=== PATIENT | female | born 1955 | race Caucasian/White ===

== ENCOUNTER 2023-03-12 14:20 | Outpatient (CLI) | payer MEDICARE, BC, SELFPAY ==
--- NOTE | 2023-03-12 14:30 | MR_ITS ---
[address] [address] Phone:?[phone] Fax:?[phone] Referring Physician Information: Rao Chou M.D. [address] [address] Phone:?[phone] Fax:?[phone] Patient:Earle Lawson D.O.B:?1955 Sex:?Female Phone:?[phone] [facility] MRN:?[id number] Exam Date:?03/12/2023 EXAM: MRI of the RIGHT SHOULDER, without contrast CLINICAL HISTORY: Right shoulder pain. Evaluate for rotator cuff tendon tear. COMPARISONS: Plain radiographs 03/05/2023. TECHNICAL: MRI sequences of the right shoulder: Axials: PD, T2 Coronals: PD, STIR, T2 Sagittals: PD, T2 SEDATION: None CONTRAST: None FINDINGS: Bones: No fracture or suspicious bone marrow signal abnormality. Coracoacromial arch: Acromion: No os acromiale. Type II acromion. Acromiohumeral space: The bony distance is unremarkable. Coracohumeral space: The bony distance is unremarkable. Acromioclavicular joint: No acute injury, arthropathy, or inferior hypertrophy. Coracoclavicular ligament: The coracoclavicular ligament is intact. Rotator cuff muscles/tendons: Supraspinatus: 1.0 x 1.0 cm near full-thickness bursal sided tear of the supraspinatus tendon insertion contacts the cortical insertional surface and is superimposed upon mild supraspinatus tendinopathy best seen on sagittal series 8 image 5 and coronal series 4 image 10. No muscular atrophy. Infraspinatus: Bursal sided fraying and mild to moderate tendinopathy of the infraspinatus tendon. No muscular atrophy. Teres minor: The teres minor tendon and muscle are intact. Subscapularis: Slight tendinopathy. No muscular atrophy. Labrum and glenohumeral joint: No evidence of labral tear although evaluation is suboptimal because of nonarthrogram technique. Small glenohumeral joint effusion. No full-thickness chondral defect or subchondral bone marrow edema/cystic change is seen. There is edema-like signal within and thickening of the inferior glenohumeral ligament/glenohumeral joint capsule. Proximal biceps tendon, long head and short heads: The long and short heads of the proximal biceps tendon are intact. Bursae: Subacromial/subdeltoid: Moderate bursitis. Subcoracoid: No convincing subcoracoid bursal thickening/bursitis. IMPRESSION: 1. 1.0 x 1.0 cm near full-thickness bursal sided tear of the supraspinatus tendon insertion contacts the cortical insertional surface and is superimposed upon mild supraspinatus tendinopathy. 2. Findings highly associated with adhesive capsulitis. 3. Bursal sided fraying and mild to moderate tendinopathy of the infraspinatus tendon. 4. Slight subscapularis tendinopathy. 5. Moderate subacromial/subdeltoid bursitis. 6. Small glenohumeral joint effusion. 7. No atrophy of the rotator cuff musculature. 8. Intact biceps tendon. RCB Electronically signed on 03/13/2023 10:52:00 AM by Kana Zaragoza M.D.
== END 2023-03-12 14:21 | disposition home or self-care (01) ==
PROVIDERS: PCP Nurse Practitioner Family; Visit Provider Orthopaedic Surgery Sports Medicine
DX: M25.511 Pain in right shoulder (principal); M75.101 Unspecified rotator cuff tear or rupture of right shoulder, not specified as traumatic; M75.01 Adhesive capsulitis of right shoulder; M75.51 Bursitis of right shoulder; M25.411 Effusion, right shoulder
CPT/HCPCS: 73221

== ENCOUNTER 2023-04-22 09:51 | Outpatient (CLI) | payer MEDICARE, BC, SELFPAY | END 2023-04-22 09:52 | disposition home or self-care (01) | PROVIDERS: PCP Nurse Practitioner Family; Visit Provider Nurse Practitioner Family | DX: Z01.818 Encounter for other preprocedural examination (principal) | CPT/HCPCS: 80053; 85025 ==

== ENCOUNTER 2023-05-06 07:42 | Day surgery (SDC) | payer MEDICARE, BC, SELFPAY ==
[2023-05-06] VITALS (13 sets, daily range): BP systolic 100–131; BP diastolic 51–70; PULSE 68–76; RESP 14–20; TEMP 36.2–37.1; O2SAT 93–98; BMI 24.9
[2023-05-06] MEDS: fentaNYL 100 MCG/2 ML inj IVP (07:40)
[2023-05-06] MEDS: MIDAZOLAM HCL 1 MG/ML inj IVP (07:40)
[2023-05-06] MEDS: LACTATED RINGERS 1000 ML 1,000 ML 100 ML IV (07:40)
--- NOTE | 2023-05-06 08:38 | SUR.PREOP ---
TIME?OUT:?0832 PT/RN/MDA?VERIFICATION?OF?SURGICAL?SITE,?PROCEDURE,?AND?CONSENT OBTAINED?PRIOR?TO?INVASIVE?PROCEDURE.right shoulder r melany smith crna pt and consent
[2023-05-06] MEDS: SODIUM CHLORIDE 0.9 % (FLUSH) 10 ML SYRINGE IVF (08:40)
[2023-05-06] MEDS: CEFAZOLIN 2 GM in 0.9 % SODIUM CHLORIDE Mini-bag 100 ML IVPB (08:57)
--- NOTE | 2023-05-06 09:01 | W.PM.NB ---
Nerve Block Nerve Block Time Seen by Provider: 08:30 Date Seen: 05/06/23 Type of block requested by surgeon for post-operative analgesia: supraclavicular Side: right Time out performed: Yes Verification of patient name: Yes Verification of date of : Yes Site marking: site marked Name of person performing procedure: Siva Magallanes Continuous monitoring Was continuous monitoring of O2 sat, B/P, quality assurance monitor, recorded every 15 minutes?: Yes Procedure Checklist: sterile prep, needles and gloves Ultrasound guided. Images saved: Yes Medications given in 5ml increments after negative aspiration: Ropivicaine %: 0.5 mL: 25 Needle gauge: 21 Decadron (mg): 10 Precedex (mcg): 25 Patient tolerated procedure well: Yes Additional comments: Injected in 5ml increments after negative aspiration Block Charges Block Charge (with Pro Fee): Brachial Plexus Use of Ultrasound Machine for Block: Yes- US Guidance/pain block
[2023-05-06] MEDS: EPINEPHrine 1 MG in SODIUM CHLORIDE IRRIG SOLUTION 3,000 ML 9003 MG IRRIGATION ×5 (09:09→10:14)
--- NOTE | 2023-05-06 09:21 | SUR.OPER ---
CAMERA LIGHT CORD ERRORED IN SCANNING BUT STERILIZATION WAS CONFIRMED WITH STERILE PROCESSING PRIOR TO PROCEDURE START.
--- NOTE | 2023-05-06 10:21 | P.ORPRC_ITS ---
Procedure Note Date of procedure: 05/06/23 Procedure: PREOPERATIVE DIAGNOSES: 1. Right shoulder rotator cuff tear. 2. Right shoulder subacromial impingement syndrome. POSTOPERATIVE DIAGNOSES: 1. Right shoulder rotator cuff tear - supraspinatus. 2. Right shoulder subacromial impingement syndrome. 3. Right shoulder adhesive capsulitis NAME OF OPERATION: 1. Right shoulder arthroscopic rotator cuff repair - full-thickness supraspinatus and upper border Subscapularis 2. Right shoulder arthroscopic bursectomy, subacromial decompression/partial acromioplasty. 3. Right shoulder manipulation under anesthesia SURGEON: Rao Chou MD CANE SPLICER: Jaret Ramirez. Of note, a skilled assistant offset press operator was critical for this case to aide in patient positioning, suture manipulation, arm positioning, instrument positioning, and closure. ANESTHESIA: General plus preoperative supraclavicular block. EBL: 25 mL IMPLANTS: Arthrex 4.75 mm BioComposite SwiveLock suture anchor (x1); 5.5 mm BioComposite corkscrew suture anchor (x1); 5.5 mm BioComposite SwiveLock suture anchor (x3) COMPLICATIONS: None evident INDICATIONS: The patient is a pleasant, 67-year-old female who has experienced right shoulder pain that has been increasing in recent time. Physical exam and imaging were consistent with a rotator cuff tear. Given their findings, as well as the weakness and pain, and inadequate response to nonoperative management, recommendation was made for surgery. FINDINGS: Exam under anesthesia revealed stable shoulder with excellent range of motion. The diagnostic arthroscopy revealed relatively healthy articular cartilage surfaces of the glenohumeral joint. The Subscapularis tendon was torn from its upper border with moderate retraction and exposure of the lesser tuberosity. The long head of the biceps tendon was intact. The superior rotator cuff tendon was found to be torn full-thickness throughout the majority of the supraspinatus with mild retraction. The labrum was relatively healthy without significant tearing. No loose bodies were identified within the pouch or subscapularis recess. Of note, she did have a significantly tight shoulder consistent with adhesive capsulitis. Passive elevation preoperatively showed 80?. External rotation at the side of 45. With abduction, external rotation of 60. After manipulation under anesthesia toe, which was done very controlled manner being able both palpate and subtly audibly hear the tissues giving way, manipulation improved her passive range of motion to elevation of 170, external rotation at the side to 60+, and with the shoulder abducted, external rotation to 90. PROCEDURE: Following a thorough discussion of risks, benefits, and alternatives, consent was obtained and the right shoulder was marked. The patient was brought to the operating room and placed supine on the operating tab le. Induction of anesthesia was completed after preoperative supraclavicular block was administered in preop holding. Appropriate time out was performed identifying proper patient, site, and procedure. 2 g IV Ancef was administered within 1 hour of incision preoperatively. Manipulation under anesthesia was performed at this stage. Gentle manipulation as described above showed the changes of range of motion and significant improvement. Thereafter, the right upper extremity was prepped and draped in the appropriate sterile fashion using ChloraPrep prep. This was after the patient was positioned in the beach chair with their head in neutral alignment and all bony prominences well padded. The shoulder was insufflated with 20mL of normal saline via an 18g spinal needle from a posterior approach. An 11 blade skin incision allowed a blunt trochar to be inserted and diagnostic arthroscopy to be performed with the findings as noted above. An anterior portal was established with an outside in technique. This allowed the probe to be inserted and confirm the diagnostic arthroscopic findings. The shaver was then inserted and allowed debridement of the rotator interval and the deep surface of the supraspinatus tear as well as the lesser tuberosity bone for preparation of the subscapularis repair. The capsular tissues were inflamed which is pretty typical following either adhesive capsulitis and/or manipulation under anesthesia. Following this, the upper border subscapularis was repaired after debriding the lesser tuberosity with the shaver and [place] cautery. Subscapularis was captured in horizontal mattress fashion with a fiber tape suture. The tails were brought to a single anchor in the lesser tuberosity with excellent reapproximation of the subscap tendon and good excursion/tension. Thereafter, the subacromial space was entered. Here, a complete bursectomy and partial acromioplasty/subacromial decompression was performed with a combination of radiofrequency ablator, the shaver, and a 5.5 mm bur. Further inspection of the supraspinatus and infraspinatus rotator cuff was performed. This identified the tear as noted above. The margins of the tear were debrided, and the greater tuberosity was debrided with a combination of the apollo cautery, shaver, and bur on reverse setting. After gentle decortication, a speed bridge configuration was enacted. Id 2 medial row anchors were placed. The anterior 1 will was a corkscrew to loss to pass the 4 suture tape tails independently and tied them to help take some of the tension off the sutures at this stage. A posterior medial anchor was a SwiveLock with fiber tapes passed and eventually anchor down from our lateral anchors. 2 lateral anchors were then placed after tying the anterior medial sutures and passing the posterior medial sutures. A tail from each of the medial row anchor sutures were then brought to a lateral row anchor. Excellent reapproximation of the tissue to the greater tuberosity was achieved with broad footprint compression. Prior to anchor yard truck driver removal, the eyelet sutures were tugged on for each anchor and found that the anchor had excellent stability within the bone. A small dog ear was seen along the posterior tissues and thus 1 of the eyelet sutures from the posterior lateral anchor were passed and tied in a simple fashion. The shoulder was placed through a range of motion and found to be stable. The rotator cuff was re-probed and found to be stable. Instruments were removed. Excess fluid was drained, closure performed with 4-0 Monocryl and Steri-Strips. Dressings were applied. Sling was applied. The patient was awoken from anesthesia and transferred to the PACU in stable condition. A skilled assistant offset press operator was critical for this case to aid in patient positioning, limb positioning, skill to manipulate arthroscopic instruments and camera, suture management, patient safety, and closure. PLAN: 1. Elbow, forearm, wrist and digit range of motion as tolerated. 2. Encouraged ice. 3. Oxycodone for pain as needed. 4. Sling at all times except for ROM and showering. 5. Follow up with PA visit in 1-2 weeks for wound check. Initiate physical therapy immediately following that visit for passive range of motion as she will have a tendency to get stiff again due to her pre-existing adhesive capsulitis. Initiate active assisted range of motion at 4-6 weeks. May do pendulums now.
--- NOTE | 2023-05-15 08:07 | W.ANESCHARGE ---
Anesthesia Charges Start Date/Time Anesthesia Start Date: 05/06/23 Anesthesia Start Time: 08:41 Stop Date/Time Anesthesia Stop Date: 05/06/23 Anesthesia Stop Time: 10:46
== END 2023-05-06 12:40 | disposition home or self-care (01) ==
PROVIDERS: PCP Nurse Practitioner Family; Visit Provider Orthopaedic Surgery Sports Medicine
PROC: (CPT 23412; principal; 2023-05-06 09:15)
DX: M75.101 Unspecified rotator cuff tear or rupture of right shoulder, not specified as traumatic (principal); M75.41 Impingement syndrome of right shoulder; M75.01 Adhesive capsulitis of right shoulder; G89.18 Other acute postprocedural pain
CPT/HCPCS: 29827; 29826; 01630; 64415; 76942; C1713; J0171; J0330; J0690; J1100; J2250; J2371; J2405; J2704; J2795; J3010; J7120; L3670

== ENCOUNTER 2023-08-27 09:15 | Outpatient (CLI) | payer MEDICARE, BC, SELFPAY | END 2023-08-27 09:16 | disposition home or self-care (01) | LOC: KYNREF 14:45 | PROVIDERS: PCP Nurse Practitioner Family; Visit Provider Nurse Practitioner Family | DX: Z13.0 Encounter for screening for diseases of the blood and blood-forming organs and certain disorders involving the immune mechanism (principal) | CPT/HCPCS: 85025 ==

== ENCOUNTER 2024-11-26 11:06 | Outpatient (CLI) | payer MEDICARE, BC, SELFPAY ==
--- NOTE | 2024-11-26 11:30 | CRLHL7_ITS ---
For Patients: As a result of the Century Cures Act, medical imaging exams and procedure reports are released immediately into your electronic medical record. You may view this report before your referring provider. If you have questions, please contact your health care provider. COMPARISON: 09/19/21, 05/12/18, 07/30/16 TECHNIQUE: CC and MLO views were obtained. These mammographic images have been obtained using full-field digital technique. These mammographic images were interpreted with the benefit of computer aided detection and tomosynthesis. BREAST COMPOSITION: There are scattered areas of fibroglandular density. FINDINGS: No suspicious findings. ASSESSMENT: BI-RADS 2 Benign RECOMMENDATION: Annual screening mammogram. A lay language report of this examination will be provided to the patient. Dictated by: Britton Wells MD @ 12/04/2024 13:03:16 (Electronically Signed)
== END 2024-11-26 11:07 | disposition home or self-care (01) ==
LOC: MAMMO 11:07
PROVIDERS: PCP Nurse Practitioner Family; Visit Provider Nurse Practitioner Family
DX: Z12.31 Encounter for screening mammogram for malignant neoplasm of breast (principal)
CPT/HCPCS: 77063; 77067

== ENCOUNTER 2025-08-04 18:41 | Emergency (ER) | payer MEDICARE, BC, SELFPAY ==
--- OUTSIDE RECORDS SUMMARY | 2025-08-04 18:43 | XMS_ITS | Clinical Summary ---
Author Organization [facility] Address [address] [place] [address] Care Team Providers Care Retail Sales Merchandiser Development Name Role Phone Unavailable Primary Care Provider Unavailabl e Allergies Active AllergyReactionsCriticalityNoted DateCommentsHydrocodone-Acetaminophen Intolerance-Can't Take08/01/2007 dizzy, nausea and did not fell right Medications MedicationSigDispense QuantityRefillsLast FilledStart DateEnd DateStatus cholecalciferol (VITAMIN D) 1,000 unit capsule Take 1 capsule by mouth once daily.ctive DME CPAP supplies for treatment of JUAN 1 Each ctive CPAP Indications:Obstructive sleep apneaCPAP, heated humidifier, mask, headgear, filters and tubing. Pressure: 11cm/H2O With EPR of 3 Length of Need: 99 1 Device ctive fluticasone (50 mcg per actuation) nasal solution (FLONASE) Inhale 1 [place] into both nostrils once daily. 1 Bottle 12/19/2016Active Active Problems ProblemNoted DateDiagnosed DateTMJ tutzpkfdyrp33/11/2011OSA 11/23/2009 AHI 11.6, aylsrpxrtm75/26/2010Uterine prolapse without mention of vaginal wall prolapse 08/01/2007Mixed incontinence urge and stress (male)(female)08/01/2007Hypertrophy of inferior nasal turbinateChronic sinusitis Immunizations ImmunizationAdministration DatesNext DueInfluenichelleza IIV3 (Age >=3 years) 06/21/2008Tdap110/02/2006 Family History Medical HistoryRelationNameCommentsCancerBrotherNon Hodgkins LymphomaGI Disease FatherCeliac SprueDiabetesMaternal AuntArthritisMaternal GrandmotherDiabetes Maternal GrandmotherThyroid DiseaseMaternal GrandmotherCancerMotherNon Hodgkins LymphomaHeart DiseasePaternal GrandfatherOsteoporosisPaternal Grandmother Psychiatric illnessPaternal Grandmotherinvolutional melancholy after hysterectomy- severe depressionOtherSister 1MSArthritisSister 2RA and fibro RelationNameStatusCommentsBrotherFatherAliveMaternal AuntMaternal Grandmother MotherDeceased (Age 44)Paternal GrandfatherPaternal GrandmotherSister 1Sister 2 Social History Tobacco UseTypesPacks/DayYears UsedDateSmoking Tobacco: NeverSmokeless Tobacco: Never Tobacco Cessation:Counseling Given: No Alcohol UseStandard Drinks/WeekCommentsNo0 (1 standard drink = 0.6 oz pure alcohol)CommentsNoSex and Gender InformationValueDate RecordedSex Assigned at BirthNot on fileLegal SbcJykdjg95/14/2013 5:24 AM CSTGender Identity Not on fileSexual OrientationNot on file Obstetrics History GravidaParaTermPretermABIABSABEctopicMultipleLivingLive Xfcqie297QmazCnoocwgPE Total LaborLabor/2nd/7taWlwmmyGfqKqvjBkeiVDETjrT5D2DxncFtquEvvvHgfuGzcf Last Filed Vital Signs Vital SignReadingTime TakenCommentsBlood Pwpsnyod991/6706/21/2017 1:43 PM GAS ENGINE OPERATOR Omktu516306/21/2017 1:43 PM GJYUorhvirarsc48.4 ??C (97.6 ??F)06/21/2017 1:43 PM CSTRespiratory Tpwf438910/04/2016 1:29 PM CSTOxygen Tcmovxgshn958%06/21/2017 1:43 PM CSTroom airInhaled Oxygen Concentration--Lqkmaj76.7 kg (144 lb 12.8 oz) 06/21/2017 1:43 PM GKSHgrhnq331 cm (5' 3.39)06/21/2017 1:43 PM CSTBody Mass Index25.34108/21/2016 1:43 PM GAS ENGINE OPERATOR Plan of Treatment Health MaintenanceDue DateLast DoneCommentsHepatitis C screening for age 18-79 1972Pneumococcal series for age 50+ (1 of 1 - PCV)2004Zoster (shingles) series for age 50+ (1 of 2)2004Lipids for age 45-7507/26/2016 07/26/2011, 02/18/2007Colonoscopy through age 750Depression screening for age 12+Tetanus ajruhkw06BMI (ht and wt on same day) for age 18+, 02/20/2017, 12/19/2016, Additional history existsMammogram for age 40-75, 07/30/2016, 05/09/2015, Additional history existsDEXA/DXA scan for age 65+ COVID-19 vaccine series ( - 2024- season)2025 Influenza Vaccine (#1)RSV vaccine for adults or (1 - 1-dose 75+ series)2029Hepatitis B series for 19+Aged OutNo longer eligible based on patient's age to complete this topic Medical Devices ImplantedTypeAreaManufacturerDevice IdentifierShelf Expiration DateModel / Serial / LotStent Ent Mini Steroid-Releasing Propel Bioabsorb - [id number] Implanted:Qty: 4 on 08/14/2016 by Johnnie Malik MD at [facility] Bilateral: [id number] / / [id number]:2 Propels in each side Procedures Procedure NamePriorityDate/TimeAssociated DiagnosisCommentsXR MAMMO BILAT BMUWOAMOAXexbxve29/01/2018 2:02 PM CDT Visit for screening mammogram LIPID PANEL W REFLEX MEASURED IDZRevsczq78/15/2011 9:02 AM GAS ENGINE OPERATOR Screening cholesterol level XR DXA BONE DENSITY 2 SITES VGFKNSifnbqm77/10/2007 8:36 AM CDT Screening Osteoporosis from Last 3 Months or Most Recently Relevant to Health Maintenance Results * XR MAMMO BILAT SCREENING (05/12/2018 2:02 PM CDT)Anatomical RegionLaterality ModalityBREASTS, Breast Left, Breast RightBilateralMammographySpecimen (Source)Anatomical Location / LateralityCollection Method / VolumeCollection TimeReceived Time Impressions 05/13/2018 12:20 PM CDT There is no radiographic evidence for malignancy. Recommend annual mammograms. A lay language report of this examination will be provided to the patient. MAMMOGRAM ASSESSMENT: ??ACR 2 Benign Narrative 05/13/2018 12:20 PM CDT XR MAMMO BILAT SCREENING [[id number]] CLINICAL HISTORY: ??This is an asymptomatic 62 y.o. patient. INDICATION FOR EXAM: Mammogram Screening. TECHNIQUE: CC & MLO views were obtained. This digital study was evaluated with the assistance of Computer-Aided Detection. COMPARISON FILMS: Yes 07/30/16 [facility] 05/09/15 [facility] FINDINGS: ??Mammographically, the breast tissue has scattered fibroglandular densities. ??No suspicious masses or microcalcifications. ?? Benign appearing calcifications within both breasts and Intramammary lymph node within right breast. Authorizing ProviderResult TypeResult StatusLorena Benítez PAMAMMOFinal Result * LIPID PANEL W REFLEX MEASURED LDL (07/26/2011 9:02 AM GAS ENGINE OPERATOR)ComponentValueRef RangeTest MethodAnalysis TimePerformed AtPathologist Signature CHOLESTEROL,[id number] - 199 mg/dLRIDGE[facility] YJPKSIXSTMUDDHBU47<150 mg/dL [facility] LABHDL LEUEQYRAUPO87>40 mg/dLRIDGEVIEW LE [facility]UEUR [facility] LABCHOL/HDL RATIO 2.78<4.51[facility] LABLDL LMUJCZEGDZK187<131 mg/dLRIDGEVIEW [facility]UEUR [facility] LAB PATIENT STATUSFastingRIDGEVIEW [facility] LABSpecimen (Source)Anatomical Location / LateralityCollection Method / VolumeCollection TimeReceived TimeBlood specimen (specimen)BLOOD SPECIMEN / Lgrbyoy5907/26/2011 9:02 AM CST07/26/2011 8:54 AM GAS ENGINE OPERATOR Narrative Authorizing ProviderResult TypeResult StatusBridgekasey Benítez PACHEMISTRY Final ResultPerforming OrganizationAddressCity/State/ZIP CodePhone Number [facility] [address] [place] [address] * XR DEXA BONE DENSITY 2 SITES (02/18/2007 8:36 AM CDT)Anatomical Region LateralityModalitySpine, HIPS, HIPL, HIPROtherSpecimen (Source)Anatomical Location / LateralityCollection Method / VolumeCollection TimeReceived Time 02/18/2007 8:36 AM CDT Narrative 02/26/2007 8:55 AM CDT Please see scanned document for results of this study. Procedure Note Margarita Zimmerman D - 02/26/2007 Please see scanned document for results of this study. Authorizing ProviderResult TypeResult StatusJoyce Hale NPDEXAFinal Result from Last 3 Months or Most Recently Relevant to Health Maintenance Advance Directives * Full Code (Latest Code Status on File) Date ActivatedDate InactivatedComments08/14/2016 11:28 AM08/14/2016 6:44 PM * Full Code Date ActivatedDate InactivatedComments08/13/2016 2:22 PM08/14/2016 11:25 AM
[2025-08-04 19:04] VITALS: BP 191/76; PULSE 74; RESP 20; TEMP 36.2; O2SAT 97; BMI 29.8
--- NOTE | 2025-08-04 19:07 | CRLHL7_ITS ---
For Patients: As a result of the Century Cures Act, medical imaging exams and procedure reports are released immediately into your electronic medical record. You may view this report before your referring provider. If you have questions, please contact your health care provider. Indication: Fall on ice Technique: Right wrist 3 view Comparison: None Findings: Bones: Diffuse osseous demineralization. No acute fracture. Mild subluxation of the 1st digit at the CMC joint, which may be related to positioning. Joint spaces: Mild 1st CMC joint osteoarthritis. Mild radiocarpal joint osteoarthritis. Soft tissues: Mild soft tissue swelling along the dorsum of the wrist. Impression: No acute fracture. Mild subluxation of the 1st digit at the CMC joint which may be positional. If there is snuffbox tenderness, consider dedicated scaphoid views, though no displaced fracture is visualized. Dictated by Arelis Fuchs MD @ 08/04/2025 7:24:43 PM (Electronically Signed)
--- NOTE | 2025-08-04 19:51 | ED.GENADULT ---
HPI - General Adult General Chief complaint: Fall/Minor Trauma Stated complaint: fell, think broken R wrist Time Seen by Provider: 08/04/25 19:50 History of Present Illness HPI narrative: 69-year-old woman presenting to the emergency department Related Data Home Medications ?Medication ?Instructions ?Recorded ?Confirmed cholecalciferol (vitamin D3) 25 25 mcg PO QDAY 06/18/23 08/28/24 mcg (1,000 unit) capsule (Vitamin D3) Allergies Allergy/AdvReac Type Severity Reaction Status Date / Time acetaminophen (From Vicodin) Allergy Verified 08/04/25 19:06 hydrocodone (From Vicodin) Allergy Verified 08/04/25 19:06 ibuprofen AdvReac Unknown Wheezing Verified 08/04/25 19:06 [facility] Medical History (Updated 08/29/24 @ 14:21 by Kayla Bella, JAYY, [employer]) Leukopenia ?D72.819 - Decreased white blood cell count, unspecified (ICD-10) Osteoporosis ?M81.0 - Age-related osteoporosis without current pathological fracture (ICD-10) Lung nodule ?R91.1 - Solitary pulmonary nodule (ICD-10) Temporomandibular joint disorder ?M26.609 - Unspecified temporomandibular joint disorder, unspecified side (ICD-10) Sleep apnea ?G47.30 - Sleep apnea, unspecified (ICD-10) Chronic cough ?R05.3 - Chronic cough (ICD-10) Bilateral dry eyes ?H04.123 - Dry eye syndrome of bilateral lacrimal glands (ICD-10) History of trigger finger ?Z87.39 - Personal history of other diseases of the musculoskeletal system and connective tissue (ICD-10) History of sinusitis ?Z87.09 - Personal history of other diseases of the respiratory system (ICD-10) History of sinus bradycardia ?Z86.79 - Personal history of other diseases of the circulatory system (ICD-10) History of allergic rhinitis ?Z87.09 - Personal history of other diseases of the respiratory system (ICD-10) Surgical History (Updated 06/18/23 @ 08:40 by Indy Lopez) History of arthroscopy of right shoulder (05/06/23) ?Z98.890 - Other specified postprocedural states (ICD-10) History of colonoscopy ?Z98.890 - Other specified postprocedural states (ICD-10) History of tubal ligation ?Z98.51 - Tubal ligation status (ICD-10) History of uterosacral ligament suspension ?Z98.890 - Other specified postprocedural states (ICD-10) History of tonsillectomy ?Z90.89 - Acquired absence of other organs (ICD-10) History of surgery on left wrist (12/18/18) ?Z98.890 - Other specified postprocedural states (ICD-10) History of sinus surgery ?Z98.890 - Other specified postprocedural states (ICD-10) History of nasal polypectomy ?Z98.890 - Other specified postprocedural states (ICD-10) ?Z87.09 - Personal history of other diseases of the respiratory system (ICD-10) History of hysterectomy ?Z90.710 - Acquired absence of both cervix and uterus (ICD-10) Family History Maternal Grandmother Arthritis Thyroid disease Pancreatic cancer Diabetes Sister Multiple sclerosis Rheumatoid arthritis Father Celiac disease Paternal Grandfather Heart disease Parkinson disease Brother Non-Hodgkin lymphoma Mother Non-Hodgkin lymphoma Paternal Grandmother Osteoporosis Brother Kidney disease Brother Macular degeneration Sister Rheumatoid arthritis Celiac disease Ocular migraine Kidney stones Social History (Reviewed 06/18/23 @ 08:35 by Chana Selby ~ [facility], [facility]) Narrative: . 3 children. Retired. Alcohol, none. Non-smoker. No illicit drug use. Smoking Status: Never smoker Do you use any of these nicotine containing products: None Second hand tobacco smoke exposure: No How often do you have a drink containing alcohol: monthly or less Alcohol type: wine How many standard drinks containing alcohol do you have on a typical day: 1 or 2 How often do you have six or more drinks on one occasion: Never AUDIT-C Alcohol total score: 1 Non-prescribed substance use: denies use Caffeine: Yes Are you using contraception or practicing any form of control: No Exam Const: Vital Signs, click to edit/add: Vital Signs - 24 hr 08/04/25 19:04 Temperature 97.2 F L Pulse Rate [Right] 74 Respiratory Rate 20 Blood Pressure [Ri ght Upper Arm] 191/76 H Pulse Oximetry 97 Oxygen Delivery Me thod Room Air Course Vital Signs Vital signs: Initial Vital Signs Temperature 97.2 F L 08/04/25 19:04 Temperature Source Temporal Artery Scan 08/04/25 19:04 Pulse Rate 74 08/04/25 19:04 Pulse Rhythm Regular 08/04/25 19:04 Pulse Strength 3+ Normal 08/04/25 19:04 Respiratory Rate 20 08/04/25 19:04 Blood Pressure 191/76 H 08/04/25 19:04 Blood Pressure Mean 114 H 08/04/25 19:04 Pulse Oximetry 97 08/04/25 19:04 Oxygen Delivery Method Room Air 08/04/25 19:04 Vital Signs Temperature 97.2 F L 08/04/25 19:04 Pulse Rate 74 08/04/25 19:04 Respiratory Rate 20 08/04/25 19:04 Blood Pressure 191/76 H 08/04/25 19:04 Pulse Oximetry 97 08/04/25 19:04 Oxygen Delivery Method Room Air 08/04/25 19:04 Temperature 97.2 F L 08/04/25 19:04 Pulse Rate 74 08/04/25 19:04 Respiratory Rate 20 08/04/25 19:04 Blood Pressure 191/76 H 08/04/25 19:04 Pulse Oximetry 97 08/04/25 19:04 Oxygen Delivery Method Room Air 08/04/25 19:04 Discharge Plan Discharge Prescriptions: No Action cholecalciferol (vitamin D3) [Vitamin D3] 25 mcg (1,000 unit) capsule 25 mcg PO QDAY Follow Up/Referrals: Kayla Bella, [employer], [employer] [Primary Care Provider, Family Practice]
--- NOTE | 2025-08-04 20:18 | ED.FALL ---
HPI - Fall General Date Seen: 08/04/25 Chief Complaint: Fall/Minor Trauma Stated Complaint: fell, think broken R wrist Time Seen by Provider: 08/04/25 19:50 Source: patient Mode of arrival: ambulatory Limitations: no limitations History of Present Illness HPI Narrative: Patient is a 69-year-old female presenting to the emergency department for right wrist pain. Patient slipped and fell on the ice she states. Denies hitting her head. Notes that the dorsal aspect of her wrist is very tender. She states she has pain with movement of the right wrist. Denies any other injuries. Denies numbness to the hand. No other concerns noted at this time. Related Data Home Medications ?Medication ?Instructions ?Recorded ?Confirmed cholecalciferol (vitamin D3) 25 25 mcg PO QDAY 06/18/23 08/28/24 mcg (1,000 unit) capsule (Vitamin D3) Allergies Allergy/AdvReac Type Severity Reaction Status Date / Time acetaminophen (From Vicodin) Allergy Verified 08/04/25 19:06 hydrocodone (From Vicodin) Allergy Verified 08/04/25 19:06 ibuprofen AdvReac Unknown Wheezing Verified 08/04/25 19:06 Review of Systems Narrative: Pertinent systems reviewed and were negative unless stated in HPI PFSH PFSH Medical History Leukopenia ?D72.819 - Decreased white blood cell count, unspecified (ICD-10) Osteoporosis ?M81.0 - Age-related osteoporosis without current pathological fracture (ICD-10) Lung nodule ?R91.1 - Solitary pulmonary nodule (ICD-10) Temporomandibular joint disorder ?M26.609 - Unspecified temporomandibular joint disorder, unspecified side (ICD-10) Sleep apnea ?G47.30 - Sleep apnea, unspecified (ICD-10) Chronic cough ?R05.3 - Chronic cough (ICD-10) Bilateral dry eyes ?H04.123 - Dry eye syndrome of bilateral lacrimal glands (ICD-10) History of trigger finger ?Z87.39 - Personal history of other diseases of the musculoskeletal system and connective tissue (ICD-10) History of sinusitis ?Z87.09 - Personal history of other diseases of the respiratory system (ICD-10) History of sinus bradycardia ?Z86.79 - Personal history of other diseases of the circulatory system (ICD-10) History of allergic rhinitis ?Z87.09 - Personal history of other diseases of the respiratory system (ICD-10) Surgical History History of arthroscopy of right shoulder (05/06/23) ?Z98.890 - Other specified postprocedural states (ICD-10) History of colonoscopy ?Z98.890 - Other specified postprocedural states (ICD-10) History of tubal ligation ?Z98.51 - Tubal ligation status (ICD-10) History of uterosacral ligament suspension ?Z98.890 - Other specified postprocedural states (ICD-10) History of tonsillectomy ?Z90.89 - Acquired absence of other organs (ICD-10) History of surgery on left wrist (12/18/18) ?Z98.890 - Other specified postprocedural states (ICD-10) History of sinus surgery ?Z98.890 - Other specified postprocedural states (ICD-10) History of nasal polypectomy ?Z98.890 - Other specified postprocedural states (ICD-10) ?Z87.09 - Personal history of other diseases of the respiratory system (ICD-10) History of hysterectomy ?Z90.710 - Acquired absence of both cervix and uterus (ICD-10) Family History Maternal Grandmother Arthritis Thyroid disease Pancreatic cancer Diabetes Sister Multiple sclerosis Rheumatoid arthritis Father Celiac disease Paternal Grandfather Heart disease Parkinson disease Brother Non-Hodgkin lymphoma Mother Non-Hodgkin lymphoma Paternal Grandmother Osteoporosis Brother Kidney disease Brother Macular degeneration Sister Rheumatoid arthritis Celiac disease Ocular migraine Kidney stones Social History Narrative: . 3 children. Retired. Alcohol, none. Non-smoker. No illicit drug use. Smoking Status: Never smoker Do you use any of these nicotine containing products: None Second hand tobacco smoke exposure: No How often do you have a drink containing alcohol: monthly or less Alcohol type: wine How many standard drinks containing alcohol do you have on a typical day: 1 or 2 How often do you have six or more drinks on one occasion: Never AUDIT-C Alcohol total score: 1 Non-prescribed substance use: denies use Caffeine: Yes Are you using contraception or practicing any form of control: No Exam Narrative: Exam Narrative: Const: Well-nourished, Well-developed, in mild distress Eyes: PERRL, no conjunctival injection, and symmetrical lids HENT: Atraumatic external nose and ears. Moist mucous membranes. Neck: Symmetric, trachea midline, No thyromegaly. CVS: Radial pulses 2+ bilaterally MSK: Swelling noted to right wrist. Tenderness at the anatomical snuffbox. Tenderness noted diffusely around the wrist. Decreased range of motion to wrist secondary to pain. No tenderness noted to rest of upper extremity. Skin: Warm, Dry. No rashes or lesions. Neuro: Normal Muscle tone, No focal neurological deficits. Psych: Awake, Alert, & Oriented x3. Appropriate mood and affect. Const: Vital Signs, click to edit/add: Vital Signs - 24 hr 08/04/25 19:04 Temperature 97.2 F L Pulse Rate [Right] 74 Respiratory Rate 20 Blood Pressure [Ri ght Upper Arm] 191/76 H Pulse Oximetry 97 Oxygen Delivery Me thod Room Air Course Vital Signs Vital signs: Initial Vital Signs Temperature 97.2 F L 08/04/25 19:04 Temperature Source Temporal Artery Scan 08/04/25 19:04 Pulse Rate 74 08/04/25 19:04 Pulse Rhythm Regular 08/04/25 19:04 Pulse Strength 3+ Normal 08/04/25 19:04 Respiratory Rate 20 08/04/25 19:04 Blood Pressure 191/76 H 08/04/25 19:04 Blood Pressure Mean 114 H 08/04/25 19:04 Pulse Oximetry 97 08/04/25 19:04 Oxygen Delivery Method Room Air 08/04/25 19:04 Vital Signs Temperature 97.2 F L 08/04/25 19:04 Pulse Rate 74 08/04/25 19:04 Respiratory Rate 20 08/04/25 19:04 Blood Pressure 191/76 H 08/04/25 19:04 Pulse Oximetry 97 08/04/25 19:04 Oxygen Delivery Method Room Air 08/04/25 19:04 Temperature 97.2 F L 08/04/25 19:04 Pulse Rate 74 08/04/25 19:04 Respiratory Rate 20 08/04/25 19:04 Blood Pressure 191/76 H 08/04/25 19:04 Pulse Oximetry 97 08/04/25 19:04 Oxygen Delivery Method Room Air 08/04/25 19:04 MDM - Fall MDM Narrative Medical decision making narrative: Patient is 69-year-old female presenting for right wrist pain. X-ray ordered in triage. X-ray came back showing no acute concerning fractures as interpreted by myself the radiologist. There is lives mild subluxation of the 1st digit at the CMC which may be positional. I do recommend scaphoid views of there is snuffbox tenderness. Since she does have snuffbox tenderness this will be ordered. X-rays of the scaphoid do not show any acute fractures as interpreted by myself in the radiologist. Considering the location of some of her pain there is high clinical suspicion for underlying fracture. Will place in a thumb spica splint and have her follow-up with her primary care provider. She is agreeable to this plan. Oxycodone provided via instymeds. She is neurovascular intact. Imaging Data Right wrist x-ray: Attestation: I have reviewed the pertinent imaging results. Radiologist's impression: No acute fracture. Mild subluxation of the 1st digit at the CMC joint which may be positional. If there is snuffbox tenderness, consider dedicated scaphoid views, though no displaced fracture is visualized. Dictated by Arelis Fuchs MD @ 08/04/2025 7:24:43 PM Right scaphoid x-ray: Attestation: I have reviewed the pertinent imaging results. Radiologist's impression: No acute fracture of the scaphoid although evaluation is limited due to underlying osseous demineralization. If there is persistent clinical concern recommend repeat radiographs in 10-[address] or MRI. Mild degenerative changes of the 1st carpometacarpal joint. Slight subluxation at the 1st metacarpophalangeal joint. Dictated by Terrence Grijalva MD @ 08/04/2025 8:50:42 PM Discharge Plan Discharge Clinical Impression: Acute pain of right wrist Patient Disposition: Home, Self-Care Condition: Stable Instructions: Scaphoid Fracture (ED) Additional Instructions: Due to location of your pain there is concerned you could have a scaphoid fracture. These can commonly not show up on imaging until 10-14 days later. Stay in the thumb spica splint until you follow-up with the PCP or Orthopedics. Return to emergency department for new or worsening symptoms. Oxycodone provided few instymeds. Prescriptions: No Action cholecalciferol (vitamin D3) [Vitamin D3] 25 mcg (1,000 unit) capsule 25 mcg PO QDAY Follow Up/Referrals: Kayla Bella APRN, CATEGORY CONSULTANT [Primary Care Provider, Family Practice] Stand Alone Forms: [facility] Info Instructions Procedures Orthopedic Splinting/Casting Right wrist: Side: right Upper Extremity Injury Location: hand Upper extremity immobilizer: thumb spica Applied by clinician: MD/DO Conclusion: patient tolerated procedure
--- NOTE | 2025-08-04 20:20 | CRLHL7_ITS ---
For Patients: As a result of the Century Cures Act, medical imaging exams and procedure reports are released immediately into your electronic medical record. You may view this report before your referring provider. If you have questions, please contact your health care provider. Indication: Status post fall Technique: Two radiographs submitted of 1 scaphoid view. Comparison: Same-day right wrist x-rays. Findings: No acute fracture of the scaphoid although evaluation is limited due to underlying osseous demineralization. If there is persistent clinical concern recommend repeat radiographs in 10-[address] or MRI. Mild degenerative changes of the 1st carpometacarpal joint. Slight subluxation at the 1st metacarpophalangeal joint. Dictated by Terrence Grijalva MD @ 08/04/2025 8:50:42 PM (Electronically Signed)
[2025-08-04 21:43] VITALS: BP 154/78; PULSE 68; RESP 20; TEMP 36.7; O2SAT 97
== END 2025-08-04 21:46 | disposition home or self-care (01) ==
PROVIDERS: Emergency Provider Student in an Organized Health Care Education/Training Program; PCP Nurse Practitioner Family
DX: M25.531 Pain in right wrist (principal); W00.0XXA Fall on same level due to ice and snow, initial encounter; Y93.01 Activity, walking, marching and hiking
CPT/HCPCS: 29125; 73100; 73110; 99283; 99284